=== PATIENT | male | born 1965 | race Caucasian/White ===

== ENCOUNTER 2017-10-08 23:00 | Emergency (ER) | payer BC ==
[2017-10-08 23:10] VITALS: TEMP 97.8
--- NOTE | 2017-10-08 23:38 | ED PDOC ---
HPI: Chest Pain Time Seen by Provider: 10/08/17 23:11 Chief Complaint (Nursing): Chest Pain Chief Complaint (Provider): Chest Pain, Dizziness History Per: Patient History/Exam Limitations: no limitations Onset/Duration Of Symptoms: Hrs (x2) Current Symptoms Are (Timing): Better (was 5/10 pain, now 2/10) Additional Complaint(s): 52 year old [place] male with self diagnosed pmhx of reflux presents to the ED for evaluation of dizziness and left sided chest pain beginning two hours ago, rating it initially at a 5/10 but now a 2/10. He states that two weeks ago while in [place], he had a syncopal event and was taken to the local hospital there where he had a full workup including head ct, cxr, ekg, and labs, which was notable for slightly elevated troponin levels. Two hours after that, while having a forehead laceration repaired at another hospital, he reports having his troponin repeated, and it came back within normal limits, along with another normal ekg. He says he returned back home four days ago and followed up with his PMD who advised visiting a nipping machine operator for a tilt table test, but he has been unable to schedule one yet. Of note, he reports both episodes of dizziness and chest pain occurred while prostrating for prayer. Otherwise denies nausea, vomiting, and diaphoresis. PMD: Family [facility] in [facility] Past Medical History Reviewed: Historical Data, Nursing Documentation, Vital Signs Vital Signs: Last Vital Signs Temp 97.8 F 10/08/17 23:06 Pulse 67 10/08/17 23:06 Resp 18 10/08/17 23:06 BP 144/75 10/08/17 23:06 Pulse Ox 100 10/08/17 23:50 - Medical History PMH: No Chronic Diseases - Surgical History Surgical History: No Surg Hx - Family History Family History: States: CAD (mother) - Social History Current smoker - smoking cessation education provided: No Alcohol: None Drugs: Denies - Allergies Allergies/Adverse Reactions: Allergies Allergy/AdvReac Type Severity Reaction Status Date / Time No Known Allergies Allergy Verified 10/08/17 23:10 Review of Systems ROS Statement: Except As Marked, All Systems Reviewed And Found Negative Constitutional: Negative for: Other (diaphoresis) Cardiovascular: Positive for: Chest Pain (left sided) Gastrointestinal: Negative for: Nausea, Vomiting Neurological: Positive for: Dizziness Physical Exam - Reviewed Nursing Documentation Reviewed: Yes Vital Signs Reviewed: Yes - Physical Exam Appears: Positive for: No Acute Distress Head Exam: Positive for: ATRAUMATIC, NORMOCEPHALIC Skin: Positive for: Normal Color, Warm, Dry Eye Exam: Positive for: Normal appearance ENT: Positive for: Normal ENT Inspection Neck: Positive for: Normal, Painless ROM, Supple Cardiovascular/Chest: Positive for: Regular Rate, Rhythm, Chest Non Tender. Negative for: Murmur Respiratory: Positive for: Normal Breath Sounds. Negative for: Accessory Muscle Use, Respiratory Distress Gastrointestinal/Abdominal: Positive for: Normal Exam, Soft. Negative for: Tenderness Back: Positive for: Normal Inspection Extremity: Positive for: Normal ROM. Negative for: Pedal Edema, Calf Tenderness Neurologic/Psych: Positive for: Alert, Oriented (x3). Negative for: Motor/ Sensory Deficits - Laboratory Results Result Diagrams: 10/09/17 00:11 10/09/17 00:11 - ECG O2 Sat by Pulse Oximetry: 100 (RA) Pulse Ox Interpretation: Normal Medical Decision Making Medical Decision Making: Time: 2310 Initial Impression: 52 year old [place] male with recurrent chest pain Initial Plan: --EKG --CMP --Trop I --CBC with differential --PTT / PT --CXR 0110 Labs reviewed and show no clinically significant abnormalities. CXR shows no acute disease. For his duration in the ED, pt showed no arrhythmic activity. Given that pt had extensive recent testing as mentioned (see HPI), there is no indication for admission. Pt diagnosed with atypical chest pain and is to follow up with his PMD within the next 2 days and make an appt with the cardiology referral. All questions answered at this time. Scribe Attestation: Documented by Lin Louis, acting as a scribe for Christiano Roque MD. Provider Scribe Attestation: All medical record entries made by the Scribe were at my direction and personally dictated by me. I have reviewed the chart and agree that the record accurately reflects my personal performance of the history, physical exam, medical decision making, and the department course for this patient. I have also personally directed, reviewed, and agree with the discharge instructions and disposition. Disposition - Clinical Impression Clinical Impression: Chest pain, Atypical chest pain - Patient ED Disposition Is Patient to be Admitted: No Counseled Patient/Family Regarding: Studies Performed, Diagnosis, Need For Followup - Disposition Disposition: Routine/Home Disposition Time: 01:12 Condition: STABLE Additional Instructions: Pt is to follow up with PMD as well as initial cardiology referral. Instructions: Chest Pain Forms: [employer] ([employer])
[2017-10-09 00:26] LABS: BASO % 0.3 % (0.0-2.0); EOS # 0.4 K/uL (0.0-0.7); EOS % 4.1 % (0.0-4.0); LYMPH # 1.2 K/uL (1.0-4.3); LYMPH % 14.5 % (20.0-40.0); MEAN CELL VOLUME 88.2 fl (80.0-94.0); MEAN CORPUSCULAR HEMOGLOBIN 29.8 pg (27.0-31.0); MEAN CORPUSCULAR HGB CONC 33.8 g/dL (33.0-37.0); MEAN PLATELET VOLUME 6.9 fl (7.2-11.7); MONO # 0.6 K/uL (0.0-0.8); MONO % 7.2 % (0.0-10.0); NEUT # 6.3 K/uL (1.8-7.0); NEUT % 73.9 % (50.0-75.0); RBC 4.7 Mil/uL (4.40-5.90); RED CELL DISTRIBUTION WIDTH 13.2 % (11.5-14.5); WHITE BLOOD COUNT 8.5 K/uL (4.8-10.8)
[2017-10-09 00:31] LABS: PROTHROMBIN TIME 11.1 Seconds (9.8-13.1)
[2017-10-09 00:38] LABS: ALB/GLOB RATIO 1.2 (1.0-2.1); ALBUMIN 4.5 g/dL (3.5-5.0); ALT/SGPT 43 U/L (21-72); AST/SGOT 31 U/L (17-59); BLOOD UREA NITROGEN 18 mg/dl (9-20); CALCIUM 9.5 mg/dL (8.4-10.2); GFR NON-AFRICAN AMERICAN > 60
[2017-10-09 02:43] VITALS: BP 139/72; PULSE 60; RESP 16; O2SAT 98
--- NOTE | 2017-10-09 08:12 | RAD ---
Date of service: 10/08/2017 HISTORY: chest pain COMPARISON: No prior. FINDINGS: LUNGS: No active pulmonary disease. PLEURA: No significant pleural effusion identified, no pneumothorax apparent. CARDIOVASCULAR: Normal. OSSEOUS STRUCTURES: No significant abnormalities. VISUALIZED UPPER ABDOMEN: Normal. OTHER FINDINGS: None. IMPRESSION: No active disease.
--- NOTE | 2017-10-09 09:17 | CARD ---
APPROVED REPORT Date of service: 10/08/2017 EKG Measurement Heart [id number] ID [id number] <Conclusion> Normal sinus rhythm Normal ECG
== END 2017-10-09 01:25 | disposition home or self-care (01) ==
LOC: H.ER 23:00
DX: R07.89 Other chest pain (principal); R42 Dizziness and giddiness